=== PATIENT | female | born 1970 | race Caucasian/White ===

== ENCOUNTER 2017-05-18 23:39 | Observation (INO) | payer OTHER ==
[2017-05-19 00:09] VITALS: TEMP 98; BMI 30.7
--- NOTE | 2017-05-19 00:55 | PDOC ---
History of Present Illness - General History Source: Patient Exam Limitations: No Limitations - History of Present Illness Initial Comments: 05/19/17 01:50 The patient is a 46 year old female with no significant past medical history who presents to the ED with complaints of progressively worsening chest pain for a week. Patient reports intermittent right sided chest pain radiating to her right epigastric area accompanied with palpitations. She states the pain comes on randomly and lasts several seconds before residing. Patient comes into the ED today secondary to a sudden onset of chest pain while she was sitting at her desk around 11:20pm tonight. She states the pain today is worse than before. Denies recent travel. Denies a history of alcohol, tobacco, or drug use. Denies fevers or chills. Denies shortness of breath or cough. Denies dysuria or changes in urinary output. Denies abdominal pain, nausea, vomiting, or diarrhea. Denies any other symptoms. <Tom Houston - Last Filed: 05/19/17 01:50> <King Taylor - Last Filed: 05/19/17 04:32> - General Chief Complaint: Chest Pain Stated Complaint: CHEST PAIN Time Seen by Provider: 05/19/17 00:36 Past History <Tom Houston - Last Filed: 05/19/17 01:50> - Reproductive History Cervical CA: No Dysfunctional Uterine Bleeding: No Ectopic : No Endometrial CA: No Polycystic Ovaries: No Therapeutic (s) & number: No Tubal Ligation: No - Immunization History Immunization Up to Date: Yes - Psycho/Social/Smoking Cessation Hx Anxiety: No Suicidal Ideation: No Smoking History: Never smoked Hx Alcohol Use: No Drug/Substance Use Hx: No Substance Use Type: None <King Taylor - Last Filed: 05/19/17 04:32> - Past Medical History Allergies/Adverse Reactions: Allergies Allergy/AdvReac Type Severity Reaction Status Date / Time No Known Allergies Allergy Verified 05/19/17 00:07 Home Medications: Ambulatory Orders No Home Medications 0 dose .ROUTE UTDICT 03/21/14 Review of Systems - Review of Systems Able to Perform ROS?: Yes Comments:: 05/19/17 01:50 GENERAL/CONSTITUTIONAL: No fever or chills. No weakness. HEAD, EYES, EARS, NOSE AND THROAT: No change in vision. No ear pain or discharge. No sore throat. CARDIOVASCULAR: +chest pain, palpitations. No shortness of breath. RESPIRATORY: No cough, wheezing, or hemoptysis. GASTROINTESTINAL: No nausea, vomiting, diarrhea or constipation. GENITOURINARY: No dysuria, frequency, or change in urination. MUSCULOSKELETAL: No joint or muscle swelling or pain. No neck or back pain. SKIN: No rash NEUROLOGIC: No headache, vertigo, loss of consciousness, or change in strength/ sensation. ENDOCRINE: No increased thirst. No abnormal weight change. HEMATOLOGIC/LYMPHATIC: No anemia, easy bleeding, or history of blood clots. ALLERGIC/IMMUNOLOGIC: No hives or skin allergy. All Other Systems: Reviewed and Negative <Tom Houston - Last Filed: 05/19/17 01:50> *Physical Exam - Vital Signs Last Vital Signs Temp Pulse Resp BP Pulse Ox 98 F 69 16 143/78 100 05/19/17 00:07 05/19/17 00:07 05/19/17 00:07 05/19/17 00:07 05/19/17 00:07 - Physical Exam Comments: 05/19/17 01:51 GENERAL: Awake, alert, and fully oriented, in no acute distress HEAD: No signs of trauma EYES: PERRLA, EOMI, sclera anicteric, conjunctiva clear ENT: Auricles normal inspection, hearing grossly normal, nares patent, oropharynx clear without exudates. Moist mucosa NECK: Normal ROM, supple, no lymphadenopathy, JVD, or masses LUNGS: Breath sounds equal, clear to auscultation bilaterally. No wheezes, and no crackles HEART: Regular rate and rhythm, normal S1 and S2, no murmurs, rubs or gallops ABDOMEN: Soft, nontender, normoactive bowel sounds. No guarding, no rebound. No masses EXTREMITIES: Normal range of motion, no edema. No clubbing or cyanosis. No cords, erythema, or tenderness NEUROLOGICAL: Normal speech SKIN: Warm, Dry, normal turgor, no rashes or lesions noted. <Tom Houston - Last Filed: 05/19/17 01:50> - Vital Signs Last Vital Signs Temp Pulse Resp BP Pulse Ox 98 F 69 16 143/78 100 05/19/17 00:07 05/19/17 00:07 05/19/17 00:07 05/19/17 00:07 05/19/17 00:07 <King Taylor - Last Filed: 05/19/17 04:32> Heart Score/ECG Review - History History: Slightly suspicious - Electrocardiogram EKG: Non specific repolarization disturbance - Age Age: 45-65 - Risk Factors Risk Factors Heart Score: Yes Hx Hypercholesterolemia, Yes Hx Hypertension Based on the list above the patient has:: 1-2 risk factors - Troponin Troponin: </= normal limit - Score Heart Score - Total: 3 - ECG Intrepretation Rhythm: Regular Rhythm - Viola Viola: Normal <King Taylor - Last Filed: 05/19/17 04:32> ED Treatment Course - LABORATORY CBC & Chemistry Diagram: 05/19/17 02:00 05/19/17 02:00 <King Taylor - Last Filed: 05/19/17 04:32> *DC/Admit/Observation/Transfer - Attestations Scribe Attestion: 05/19/17 01:51 Documentation prepared by Tom Houston, acting as medical delivery technician for King Taylor MD <Tom Houston - Last Filed: 05/19/17 01:50> - Discharge Dispostion Admit: Yes - Attestations Physician Attestion: 05/19/17 00:54 I, Dr. King Taylor, attest that this document has been prepared under my direction and personally reviewed by me in its entirety. I further attest, that it accurately reflects all work, treatment, procedures and medical decision -making performed by me. <King Taylor - Last Filed: 05/19/17 04:32> Diagnosis at time of Disposition: Chest pain, atypical, ACS (acute coronary syndrome) - Discharge Dispostion Condition at time of disposition: Improved - Referrals Referrals: Larisa Payne [Primary Care Provider] -
[2017-05-19 02:16] LABS: BASOPHIL 0.9 % (0-2.0); EOSINOPHIL 5.1 % (0-4.5); MCH 20.8 pg (25.7-33.7); MCHC 30.8 g/dl (32.0-36.0); MEAN CELL VOLUME 67.5 fl (80-96); MEAN PLT VOLUME 8.9 fl (7.5-11.1); NEUTROPHILS 58.8 % (42.8-82.8); PLATELET COUNT 225 K/MM3 (134-434); RDW 19.8 % (11.6-15.6); WHITE BLOOD COUNT 7.7 K/mm3 (4.0-10.0)
[2017-05-19 02:27] LABS: INR 1.05 (0.82-1.09); PROTHROMBIN TIME (PATIENT) 11.6 SEC (9.98-11.88)
[2017-05-19 02:36] LABS: ALBUMIN 3.5 g/dl (3.4-5.0); ANION GAP 9 (8-16); BILIRUBIN,TOTAL 0.2 mg/dL (0.2-1.0); CO2 29 mmol/L (21-32); CREATININE 0.6 mg/dL (0.55-1.02); GLUCOSE,RANDOM 108 mg/dL (74-106); SGOT/AST 23 U/L (15-37); SGPT/ALT 26 U/L (12-78); TOT PROT 6.7 g/dl (6.4-8.2)
[2017-05-19 02:38] LABS: ALK PHOS 77 U/L (45-117); TROPONIN I < 0.02 ng/ml (0.00-0.05)
[2017-05-19 03:12] LABS: ANISOCYTOSIS 1+; HYPOCHROMIA 1+; MICROCYTOSIS 1+; PLATELET COMMENT2 NO CLOTTING DETECTED; PLATELET COMMENT3 MOD LARGE PLTS; PLATELET ESTIMATE ADEQUATE (NORMAL); POLYCHROMASIA 1+
[2017-05-19] MEDS ORDERED: ASPIRIN 81 MG CHEWABLE TABLETS PO ONE (04:31)
[2017-05-19] MEDS ORDERED: ASPIRIN 325 MG ENTERIC COATED TABLET (FP) ONE (04:41)
--- NOTE | 2017-05-19 04:48 | HP ---
CHIEF COMPLAINT: L-Sided Chest Pain PCP: Dr. Larisa Payne HISTORY OF PRESENT ILLNESS: This is a 46 y/o female with a past medical history of Anemia. Who presents to the emergency department with L-sided chest pain x 1 week. Patient describes the pain as sharp to aching, radiating to inferior L- breast intermittently lasting for seconds. Patient reports the pain became worse last night while sitting at home. Patient denies fever, chills, cough, SOB, dizziness, AP, N/V/D , constipation, dysuria. Patient denies heavy lifting, strenuous exercise or trauma. Patient denies any recent illness or travel. LMP 04/21/17 ER course was notable for: (1) EKG- NSR no ST or T wave abnormality (2) Cardiac Enzymes neg x1 (3) Chest Xray image- No infiltrate, no effusion Recent Travel: None PAST MEDICAL HISTORY: Anemia PAST SURGICAL HISTORY: Social History: Smoking: Never Alcohol: None Drugs: None Lives with spouse, homemaker Family History: Mother- Diabetes Maternal Aunt- Cardiac Allergies No Known Allergies Allergy (Verified 05/19/17 00:07) HOME MEDICATIONS: Home Medications Medication Instructions Recorded No Home Medications 0 dose .ROUTE UTDICT 03/21/14 REVIEW OF SYSTEMS CONSTITUTIONAL: chest pain Absent: fever, chills, diaphoresis, generalized weakness, malaise, loss of appetite, weight change HEENT: Absent: rhinorrhea, nasal congestion, throat pain, throat swelling, difficulty swallowing, mouth swelling, ear pain, eye pain, visual changes CARDIOVASCULAR: Absent: syncope, palpitations, irregular heart rate, lightheadedness, peripheral edema RESPIRATORY: Absent: cough, shortness of breath, dyspnea with exertion, orthopnea, wheezing, stridor, hemoptysis GASTROINTESTINAL: Absent: abdominal pain, abdominal distension, nausea, vomiting, diarrhea, constipation, melena, hematochezia GENITOURINARY: Absent: dysuria, frequency, urgency, hesitancy, hematuria, flank pain, genital pain MUSCULOSKELETAL: Absent: myalgia, arthralgia, joint swelling, back pain, neck pain SKIN: Absent: rash, itching, pallor HEMATOLOGIC/IMMUNOLOGIC: Absent: easy bleeding, easy bruising, lymphadenopathy, frequent infections ENDOCRINE: Absent: unexplained weight gain, unexplained weight loss, heat intolerance, cold intolerance NEUROLOGIC: Absent: headache, focal weakness or paresthesias, dizziness, unsteady gait, seizure, mental status changes, bladder or bowel incontinence PSYCHIATRIC: Absent: anxiety, depression, suicidal or homicidal ideation, hallucinations. PHYSICAL EXAMINATION Vital Signs - 24 hr 05/19/17 00:07 Temperature 98 F Pulse Rate 69 Respiratory 16 Rate Blood Pressure 143/78 O2 Sat by Pulse 100 Oximetry (%) GENERAL: Awake, alert, and fully oriented, in no acute distress. HEAD: Normal with no signs of trauma. EYES: Pupils equal, round and reactive to light, extraocular movements intact, sclera anicteric, conjunctiva clear. No lid lag. EARS, NOSE, THROAT: Ears normal, nares patent, oropharynx clear without exudates. Moist mucous membranes. NECK: Normal range of motion, supple without lymphadenopathy, JVD, or masses. LUNGS: Breath sounds equal, clear to auscultation bilaterally. No wheezes, and no crackles. No accessory muscle use. HEART: Regular rate and rhythm, normal S1 and S2 without murmur, rub or gallop. CP Non-reproducible on palpation ABDOMEN: Soft, nontender, not distended, normoactive bowel sounds, no guarding, no rebound, no masses. No hepatomegaly or splenomegaly. MUSCULOSKELETAL: Normal range of motion at all joints. No bony deformities or tenderness. No CVA tenderness. UPPER EXTREMITIES: 2+ pulses, warm, well-perfused. No cyanosis. No clubbing. No peripheral edema. LOWER EXTREMITIES: 2+ pulses, warm, well-perfused. No calf tenderness. No peripheral edema. NEUROLOGICAL: Cranial nerves II-XII intact. Normal speech. Normal gait. PSYCHIATRIC: Cooperative. Good eye contact. Appropriate mood and affect. SKIN: Warm, dry, normal turgor, no rashes or lesions noted, normal capillary refill. Laboratory Results - last 24 hr 05/19/17 05/19/17 05/19/17 02:00 02:00 02:00 WBC 7.7 RBC 4.38 Hgb 9.1 L Hct 29.6 L MCV 67.5 L MCHC 30.8 L RDW 19.8 H Plt Count 225 D MPV 8.9 Neutrophils % 58.8 Lymphocytes % 29.6 Monocytes % 5.6 Eosinophils % 5.1 H Basophils % 0.9 Differential Comment Slide scanned Platelet Estimate Adequate Platelet Comment No clotting detected Polychromasia 1+ Hypochromic-Microcytic 1+ Anisocytosis 1+ Microcytosis 1+ INR 1.05 Sodium 139 Potassium 4.1 Chloride 101 Carbon Dioxide 29 Anion Gap 9 BUN 14 Creatinine 0.6 D Creat Clearance w eGFR > 60 Random Glucose 108 H Calcium 9.0 Total Bilirubin 0.2 AST 23 ALT 26 D Alkaline Phosphatase 77 Creatine Kinase 144 Troponin I < 0.02 Total Protein 6.7 Albumin 3.5 ASSESSMENT/PLAN: This is a 46 y/o female with a PMHx of: Anemia. Placed in Tele Observation for Atypical Chest Pain r/o ACS for further evaluation of their emergent condition. Plan: 1. Cardiac: Atypical Chest Pain - r/o ACS - Tele Monitoring - HEART Score 3 - JENNIFER Score 0 - Serial Enzymes neg x1 - Trend CE x2 - Asa given in ED, will continue - Lipid Profile, HgBA1C in am - Consider Echo possibly outpatient if CP remains resolved, markers are negative 2. Anemia - Hgb at baseline - Will transfuse if Hgb < 7.0 - Monitor CBC 3. FEN - Tolerates PO Fluids - Replete lytes prn - Regular Diet 4. DVT Prophylaxis - OOB - SCDs - Consider ACs if LOS > 48 hrs Code Status: Full Code Problem List - Problem (1) ACS (acute coronary syndrome) Code(s): I24.9 - ACUTE ISCHEMIC HEART DISEASE, UNSPECIFIED (2) Chest pain, atypical Code(s): R07.89 - OTHER CHEST PAIN (3) Anemia Code(s): D64.9 - ANEMIA, UNSPECIFIED (4) DVT prophylaxis Code(s): ZHA4713 - Visit type - Emergency Visit Emergency Visit: Yes ED Registration Date: 05/19/17 Care time: The patient presented to the Emergency Department on the above date and was hospitalized for further evaluation of their emergent condition. - New Patient This patient is new to me today: Yes Date on this admission: 05/19/17 - Critical Care Critical Care patient: No
[2017-05-19 08:57] LABS: BASOPHIL 0.8 % (0-2.0); EOSINOPHIL 3.2 % (0-4.5); MCH 21.1 pg (25.7-33.7); MCHC 31.1 g/dl (32.0-36.0); MEAN CELL VOLUME 67.7 fl (80-96); MEAN PLT VOLUME 8.5 fl (7.5-11.1); NEUTROPHILS 64.8 % (42.8-82.8); PLATELET COUNT 231 K/MM3 (134-434); RDW 19.8 % (11.6-15.6); WHITE BLOOD COUNT 6.5 K/mm3 (4.0-10.0)
[2017-05-19 09:28] LABS: CHOLESTEROL 227 mg/dL (50-200); LDL CHOLESTEROL (ONLY SJRH) 152 mg/dL (5-100); PHOSPHOROUS 2.9 mg/dL (2.5-4.9)
[2017-05-19 09:29] LABS: TROPONIN I < 0.02 ng/ml (0.00-0.05)
[2017-05-19 11:05] LABS: PLATELET COMMENT2 NO CLUMPING NOTED; PLATELET ESTIMATE ADEQUATE (NORMAL)
[2017-05-19 11:06] LABS: ANISOCYTOSIS 1+; HYPOCHROMIA 1+; MICROCYTOSIS 1+; POLYCHROMASIA 1+
--- NOTE | 2017-05-19 14:17 | DS ---
Physical Examination Vital Signs: Vital Signs Temperature 98 F 05/19/17 00:07 Pulse Rate 78 05/19/17 09:11 Respiratory Rate 18 05/19/17 09:11 Blood Pressure 142/74 05/19/17 09:11 O2 Sat by Pulse Oximetry (%) 98 05/19/17 09:11 Constitutional: Yes: Well Nourished, No Distress, Calm Eyes: Yes: WNL, Conjunctiva Clear, EOM Intact HENT: Yes: WNL, Atraumatic, Normocephalic Neck: Yes: WNL, Supple, Trachea Midline Cardiovascular: Yes: WNL, Regular Rate and Rhythm Respiratory: Yes: WNL, Regular, CTA Bilaterally Labs: CBC, BMP 05/19/17 08:40 Discharge Summary Reason For Visit: chest pain Current Active Problems ACS (acute coronary syndrome) (Acute) Anemia (Acute) Chest pain, atypical (Acute) DVT prophylaxis (Acute) Hospital Course: This is a 46 y/o female with a past medical history of Anemia. Who presents to the emergency department with L-sided chest pain x 1 week. Patient describes the pain as sharp to aching, radiating to inferior L- breast intermittently lasting for seconds. Patient reports the pain became worse last night while sitting at home. Patient denies fever, chills, cough, SOB, dizziness, AP, N/V/D , constipation, dysuria. Patient denies heavy lifting, strenuous exercise or trauma. Patient denies any recent illness or travel. Was hospitalized for Atypical Chest Pain to r/o ACS - Tele Monitoring - HEART Score 3 - JENNIFER Score 0 - Serial Enzymes neg 3 - Lipid Profile revelaed hyperlipidemia No acute events on telemetry was noted . Patient will be discharged home in stable condition to follow up with PMD within next 4-5 days . Consider Echo as outpatient . Condition: Improved - Instructions Diet, Activity, Other Instructions: Low sodium/healthy heart diet Please follow up with your primary doctor for Echocardiogram and possible referral to earth science technical officer Return to ED if chest pain recurs Referrals: Larisa Payne [Primary Care Provider] - Disposition: HOME - Home Medications Comprehensive Discharge Medication List: Ambulatory Orders No Home Medications 0 dose .ROUTE UTDICT 03/21/14
[2017-05-19 15:37] LABS: TROPONIN I < 0.02 ng/ml (0.00-0.05)
[2017-05-19 16:18] VITALS: BP 148/75; PULSE 76
--- NOTE | 2017-05-19 20:57 | EKG ---
Test Reason : Blood Pressure : / mmHG Vent. Rate : 066 BPM Atrial Rate : 066 BPM P-R Int : 162 ms QRS Dur : 090 ms QT Int : 414 ms P-R-T Axes : 061 052 032 degrees QTc Int : 434 ms NORMAL SINUS RHYTHM NORMAL ECG WHEN COMPARED WITH ECG OF 18-MAY-2017 23:52, NO SIGNIFICANT CHANGE WAS FOUND Confirmed by DAYLIN MCGRAW MD ([id number]) on 05/19/2017 8:57:15 PM Referred By: Confirmed By:DAYLIN MCGRAW MD
--- NOTE | 2017-05-19 20:57 | EKG ---
Test Reason : Blood Pressure : / mmHG Vent. Rate : 070 BPM Atrial Rate : 070 BPM P-R Int : 168 ms QRS Dur : 096 ms QT Int : 398 ms P-R-T Axes : 046 049 032 degrees QTc Int : 429 ms NORMAL SINUS RHYTHM NORMAL ECG NO PREVIOUS ECGS AVAILABLE Confirmed by DAYLIN MCGRAW MD ([id number]) on 05/19/2017 8:57:01 PM Referred By: Confirmed By:DAYLIN MCGRAW MD
[2017-05-20] MEDS ORDERED: ASPIRIN 81 MG CHEWABLE TABLETS PO SCH (10:00)
== END 2017-05-19 16:25 | disposition home or self-care (01) ==
LOC: JER 23:39 → JERBED 05-19 04:31
PROVIDERS: ADMIT Internal Medicine; ATTEND Internal Medicine
DX: R07.89 Other chest pain (principal); I24.9 Acute ischemic heart disease, unspecified; D64.9 Anemia, unspecified
CPT/HCPCS: 36415; 71010-TC; 80053; 80061; 82550; 83036; 83721; 83735; 84100; 84484; 85025; 85610; 93005; 93010; 99283-25; G0378

== ENCOUNTER → 2024-12-10 | Day surgery (SDC) | payer OTHER | END | disposition home or self-care (01) | LOC: FMAMMOTONE 12:52 | PROVIDERS: ATTEND Student in an Organized Health Care Education/Training Program | PROC: 0HBT3ZX Excision of Right Breast, Percutaneous Approach, Diagnostic (ICD-10-PCS; principal; 2024-12-10) | DX: N60.31 Fibrosclerosis of right breast (principal); N63.10 Unspecified lump in the right breast, unspecified quadrant | CPT/HCPCS: 19081; 88305-TC ==